=== PATIENT | female | born 1990 | race African-American/Black ===

== ENCOUNTER 2018-01-17 19:19 | Emergency (ER) | payer OTHER ==
[~2018-01-17] VITALS: Ht 162.6 cm; Wt 86.2 kg
[2018-01-17] MEDS ORDERED: IV NORMAL SALINE 1000ML BAG 1,000 ML IV ONE (20:00)
[2018-01-17 20:06] LABS: BASO # 0.1 x10^3/uL (0.0-0.2); BASO % 0 % (0-3); EOS % 0 % (0-3); HEMATOCRIT 43.4 % (36.0-47.0); HEMOGLOBIN 14.2 g/dL (12.0-15.5); LYMPH # 1.3 x10^3/uL (1.0-4.8); LYMPH % 8 % (24-48); MEAN CORPUSCULAR HEMOGLOBIN 28 pg (25-35); MEAN CORPUSCULAR HGB CONC 33 g/dL (31-37); MEAN CORPUSCULAR VOLUME 86 fL (79-100); MONO # 0.5 x10^3/uL (0.0-1.1); MONO % 3 % (0-9); NEUT # 14.3 x10^3uL (1.8-7.7); NEUT % 88 % (31-73); PLATELET COUNT 273 x10^3/uL (140-400); RED BLOOD COUNT 5.05 x10^6/uL (3.50-5.40); RED CELL DISTRIBUTION WIDTH 12.7 % (11.5-14.5); WHITE BLOOD COUNT 16.3 x10^3/uL (4.0-11.0)
[2018-01-17 20:16] LABS: CALCIUM 8.9 mg/dL (8.5-10.1); CREATININE 0.9 mg/dL (0.6-1.0); GFR 90.9; POTASSIUM 3.1 mmol/L (3.5-5.1)
[2018-01-17 20:21] LABS: % BANDS 1 % (0-9); % LYMPHS 9 % (24-48); % MONOS 2 % (0-10); % SEGS 88 % (35-66); ALBUMIN 3.9 g/dL (3.4-5.0); ALBUMIN/GLOBULIN RATIO 0.9 (1.0-1.7); MAGNESIUM 1.8 mg/dL (1.8-2.4); PLT ESTIMATE ADEQUATE (ADEQUATE); TOTAL BILIRUBIN 0.2 mg/dL (0.2-1.0); TOTAL PROTEIN 8.2 g/dL (6.4-8.2)
[2018-01-17 20:23] LABS: TOXIC GRANULATION SLIGHT
[2018-01-17 20:31] LABS: BILIRUBIN,URINE NEGATIVE (NEG); CLARITY,URINE CLEAR; COLOR,URINE YELLOW; NITRITE,URINE NEGATIVE (NEG); PH,URINE 6.5; PROTEIN,URINE >=300 mg/dL (NEG-TRACE); UROBILINOGEN,URINE 0.2 mg/dL (0.2 mg/dL)
[2018-01-17 20:35] LABS: BARBITURATES NEG (NEG); BENZODIAZEPINES NEG (NEG); CANNABINOIDS NEG (NEG); COCAINE NEG (NEG); METHADONE NEG (NEG); OPIATES NEG (NEG); PHENCYCLIDINE NEG (NEG)
[2018-01-17 20:36] LABS: AMPHETAMINE/METHAMPHETAMINE NEG (NEG)
[2018-01-17 20:37] LABS: BACTERIA,URINE FEW /HPF (0-FEW); SQUAMOUS EPITHELIAL CELL,UR FEW /LPF
--- NOTE | 2018-01-17 21:42 | PHYS DOC ---
Past Medical History Past Medical History: Seizure, Other Additional Past Medical Histor: epilepsy, murmur Past Surgical History: No Surgical History Additional Information: nonsmoker Alcohol Use: None Drug Use: None Adult General Chief Complaint Chief Complaint: SEIZURE HPI HPI Patient is a 27 year old [f__sex] who presents with [] Review of Systems Review of Systems Constitutional: Denies fever or chills [] Eyes: Denies change in visual acuity, redness, or eye pain [] HENT: Denies nasal congestion or sore throat [] Respiratory: Denies cough or shortness of breath [] Cardiovascular: No additional information not addressed in HPI [] GI: Denies abdominal pain, nausea, vomiting, bloody stools or diarrhea [] : Denies dysuria or hematuria [] Musculoskeletal: Denies back pain or joint pain [] Integument: Denies rash or skin lesions [] Neurologic: Denies headache, focal weakness or sensory changes [] Endocrine: Denies polyuria or polydipsia [] All other systems were reviewed and found to be within normal limits, except as documented in this note. Current Medications Current Medications Current Medications Medications (Trade) Dose Ordered Sig/Malcolm Start Time Stop Time Status Last Admin Dose Admin Ondansetron HCl (Zofran) 4 mg 1X ONCE 01/17/18 22:00 01/17/18 22:01 Potassium Chloride (Klor-Con) 40 meq 1X ONCE 01/17/18 21:45 01/17/18 21:46 DC Sodium Chloride 1,000 ml @ 1,000 mls/hr 1X ONCE 01/17/18 20:00 01/17/18 20:59 DC 01/17/18 20:57 1,000 MLS/HR Allergies Allergies Allergies Coded Allergies Type Severity Reaction Last Updated Verified latex Allergy Unknown 12/28/14 No Physical Exam Physical Exam Constitutional: Well developed, well nourished, no acute distress, non-toxic appearance. [] HENT: Normocephalic, atraumatic, bilateral external ears normal, oropharynx moist, no oral exudates, nose normal. [] Eyes: PERRLA, EOMI, conjunctiva normal, no discharge. [] Neck: Normal range of motion, no tenderness, supple, no stridor. [] Cardiovascular:Heart rate regular rhythm, no murmur [] Lungs & Thorax: Bilateral breath sounds clear to auscultation [] Abdomen: Bowel sounds normal, soft, no tenderness, no masses, no pulsatile masses. [] Skin: Warm, dry, no erythema, no rash. [] Back: No tenderness, no CVA tenderness. [] Extremities: No tenderness, no cyanosis, no clubbing, ROM intact, no edema. [] Neurologic: Alert and oriented X 3, normal motor function, normal sensory function, no focal deficits noted. [] Psychologic: Affect normal, judgement normal, mood normal. [] Current Patient Data Vital Signs Vital Signs Date Time Temp Pulse Resp B/P (MAP) Pulse Ox O2 Delivery O2 Flow Rate FiO2 01/17/18 20:57 70 22 98 Lab Values Laboratory Tests Test 01/17/18 19:55 01/17/18 20:15 01/17/18 21:00 White Blood Count 16.3 x10^3/uL (4.0-11.0) H Red Blood Count 5.05 x10^6/uL (3.50-5.40) Hemoglobin 14.2 g/dL (12.0-15.5) Hematocrit 43.4 % (36.0-47.0) Mean Corpuscular Volume 86 fL (79-100) Mean Corpuscular Hemoglobin 28 pg (25-35) Mean Corpuscular Hemoglobin Concent 33 g/dL (31-37) Red Cell Distribution Width 12.7 % (11.5-14.5) Platelet Count 273 x10^3/uL (140-400) Neutrophils (%) (Auto) 88 % (31-73) H Lymphocytes (%) (Auto) 8 % (24-48) L Monocytes (%) (Auto) 3 % (0-9) Eosinophils (%) (Auto) 0 % (0-3) Basophils (%) (Auto) 0 % (0-3) Neutrophils # (Auto) 14.3 x10^3uL (1.8-7.7) H Lymphocytes # (Auto) 1.3 x10^3/uL (1.0-4.8) Monocytes # (Auto) 0.5 x10^3/uL (0.0-1.1) Eosinophils # (Auto) 0.0 x10^3/uL (0.0-0.7) Basophils # (Auto) 0.1 x10^3/uL (0.0-0.2) Segmented Neutrophils % 88 % (35-66) H Band Neutrophils % 1 % (0-9) Lymphocytes % 9 % (24-48) L Monocytes % 2 % (0-10) Toxic Granulation Slight Platelet Estimate Adequate (ADEQUATE) Sodium Level 139 mmol/L (136-145) Potassium Level 3.1 mmol/L (3.5-5.1) L Chloride Level 103 mmol/L (98-107) Carbon Dioxide Level 23 mmol/L (21-32) Anion Gap 13 (6-14) Blood Urea Nitrogen 12 mg/dL (7-20) Creatinine 0.9 mg/dL (0.6-1.0) Estimated GFR (Cockcroft-Gault) 90.9 BUN/Creatinine Ratio 13 (6-20) Glucose Level 115 mg/dL (70-99) H Calcium Level 8.9 mg/dL (8.5-10.1) Magnesium Level 1.8 mg/dL (1.8-2.4) Total Bilirubin 0.2 mg/dL (0.2-1.0) Aspartate Amino Transferase (AST) 13 U/L (15-37) L Alanine Aminotransferase (ALT) 19 U/L (14-59) Alkaline Phosphatase 82 U/L (46-116) Creatine Kinase 159 U/L (26-192) Total Protein 8.2 g/dL (6.4-8.2) Albumin 3.9 g/dL (3.4-5.0) Albumin/Globulin Ratio 0.9 (1.0-1.7) L Ethyl Alcohol Level < 10 mg/dL (0-10) Urine Collection Type Unknown Urine Color Yellow Urine Clarity Clear Urine pH 6.5 Urine Specific [place] 1.025 Urine Protein >=300 mg/dL (NEG-TRACE) Urine Glucose (UA) Negative mg/dL (NEG) Urine Ketones (Stick) Negative mg/dL (NEG) Urine Blood Trace (NEG) Urine Nitrite Negative (NEG) Urine Bilirubin Negative (NEG) Urine Urobilinogen Dipstick 0.2 mg/dL (0.2 mg/dL) Urine Leukocyte Esterase Small (NEG) Urine RBC 1-2 /HPF (0-2) Urine WBC 1-4 /HPF (0-4) Urine Squamous Epithelial Cells Few /LPF Urine Bacteria Few /HPF (0-FEW) Urine Mucus Mod /LPF Urine Opiates Screen Neg (NEG) Urine Methadone Screen Neg (NEG) Urine Barbiturates Neg (NEG) Urine Phencyclidine Screen Neg (NEG) Urine Amphetamine/Methamphetamine Neg (NEG) Urine Benzodiazepines Screen Neg (NEG) Urine Cocaine Screen Neg (NEG) Urine Cannabinoids Screen Neg (NEG) Urine Ethyl Alcohol Neg (NEG) Lactic Acid Level 2.8 mmol/L (0.4-2.0) H Laboratory Tests 01/17/18 19:55 Laboratory Tests 01/17/18 19:55 EKG EKG [] Radiology/Procedures Radiology/Procedures [] Course & Med Decision Making Course & Med Decision Making Pertinent Labs and Imaging studies reviewed. (See chart for details) [] Dragon Disclaimer Dragon Disclaimer This electronic medical record was generated, in whole or in part, using a voice recognition dictation system. Departure Departure Impression: Primary Impression: Breakthrough seizure Additional Impression: Hypokalemia Disposition: 01 HOME, SELF-CARE Condition: STABLE Referrals: NO PCP (PCP) WENDY GARCIA MD Patient Instructions: Hypokalemia-Brief, Potassium Content of Foods, Seizure, Adult, [id number] Additional Instructions: Please take your seizure medication as prescribed. Please refrain from driving until you have been seizure free for 6 months or until you have been cleared by your doctor. Increase your diet to include foods that are rich in potassium Scripts Ondansetron (ZOFRAN ODT) 4 Mg Tab.rapdis 1 TAB SL Q8HRS PRN for NAUSEA, #15 TAB Prov: LAURIE RUTHERFORD DO 01/17/18 Problem Qualifiers LAURIE RUTHERFORD DO Jan 17, 2018 21:42
[2018-01-17] MEDS ORDERED: POTASSIUM CHLORIDE 20 MEQ TABLET.ER. PO ONE (21:45)
[2018-01-17] MEDS ORDERED: ONDA4TAB10 SL (21:53)
[2018-01-17] MEDS ORDERED: ONDANSETRON PF 4 MG/2 ML VIAL. IV ONE (22:00)
[2018-01-17 22:20] VITALS: BP 138/86
== END 2018-01-17 22:29 | disposition home or self-care (01) ==
LOC: ER 19:19
DX: R56.9 Unspecified convulsions (principal); E87.6 Hypokalemia; G40.909 Epilepsy, unspecified, not intractable, without status epilepticus; Z91.040 Latex allergy status
CPT/HCPCS: 36415; 80053; 80307; 81001; 82550; 83605; 83735; 85007; 85025; 87086; 96374; 99284; G0480; J2405; J7030; G0479

== ENCOUNTER → 2018-01-29 | Outpatient (CLI) | payer MEDICAID, OTHER ==
[2018-01-17 22:20] VITALS: BP 138/86
[~2018-01-29] MED LIST: ONDA4TAB10 SL
--- NOTE | 2018-01-29 12:43 | KCIC ---
EXAM: Pelvic sonogram. HISTORY: Pain. TECHNIQUE: Transabdominal sonographic imaging of the pelvis was performed. COMPARISON: None. FINDINGS: The uterus measures 12.8 x 5.4 x 5.9 cm. The endometrial stripe measures 14 mm. The ovaries are normal in size and demonstrate normal blood flow. There is no pelvic free fluid. IMPRESSION: Unremarkable pelvic sonogram. Electronically signed by: Emilie La MD (01/29/2018 12:40 PM) [place] [id number]
== END | disposition home or self-care (01) ==
LOC: KCIC US 09:40
PROVIDERS: ATTEND Family Medicine
DX: R10.2 Pelvic and perineal pain (principal); E87.6 Hypokalemia; Z91.040 Latex allergy status
CPT/HCPCS: 76856

== ENCOUNTER 2018-03-29 15:15 | Emergency (ER) | payer MEDICAID ==
[~2018-03-29] VITALS: Ht 157.5 cm; Wt 86.2 kg
[2018-03-29] MEDS ORDERED: ONDANSETRON PF 4 MG/2 ML VIAL. IV ONE (16:15)
[2018-03-29] MEDS ORDERED: DICYCLOMINE 20 MG/2 ML AMPUL. IM ONE (16:15)
[2018-03-29] MEDS ORDERED: IV NORMAL SALINE 1000ML BAG 1,000 ML IV ONE (16:15)
[2018-03-29 16:32] LABS: BASO % 0 % (0-3); EOS # 0.2 x10^3/uL (0.0-0.7); EOS % 2 % (0-3); HEMATOCRIT 39.6 % (36.0-47.0); HEMOGLOBIN 13.2 g/dL (12.0-15.5); LYMPH # 2.2 x10^3/uL (1.0-4.8); LYMPH % 23 % (24-48); MEAN CORPUSCULAR HEMOGLOBIN 28 pg (25-35); MEAN CORPUSCULAR HGB CONC 33 g/dL (31-37); MEAN CORPUSCULAR VOLUME 85 fL (79-100); MONO # 0.6 x10^3/uL (0.0-1.1); MONO % 6 % (0-9); NEUT # 6.7 x10^3uL (1.8-7.7); NEUT % 69 % (31-73); PLATELET COUNT 246 x10^3/uL (140-400); RED BLOOD COUNT 4.66 x10^6/uL (3.50-5.40); RED CELL DISTRIBUTION WIDTH 12.6 % (11.5-14.5); WHITE BLOOD COUNT 9.7 x10^3/uL (4.0-11.0)
[2018-03-29 16:43] LABS: CALCIUM 8.4 mg/dL (8.5-10.1); CREATININE 0.8 mg/dL (0.6-1.0); GFR 104.1; POTASSIUM 3.8 mmol/L (3.5-5.1)
[2018-03-29 17:00] VITALS: BP 123/63
--- NOTE | 2018-03-29 17:10 | PHYS DOC ---
Past Medical History Past Medical History: Asthma, Seizure, Other Additional Past Medical Histor: epilepsy, murmur, legally blind Past Surgical History: No Surgical History Alcohol Use: None Drug Use: None Adult General Chief Complaint Chief Complaint: NAUSEA/VOMITING/DIARRHA HPI HPI 27-year-old female presents to ER via EMS for complaints of N/V/D and abd cramping which started last night after eating [place] food. Pt reports she has vomited approx. 7 times with multiple episodes of diarrhea. She denies fever/ chills, urinary sxs, palpitations, or CP. She reports abd cramping is intermittent. She denies bloody stools. She reports today she has felt fatigued. EMS had admin'd zofran ODT which per pt had improved her nausea. Review of Systems Review of Systems Constitutional: Denies fever or chills [] Respiratory: Denies cough or shortness of breath [] Cardiovascular: No additional information not addressed in HPI [] GI: Denies bloody stools. Reports intermittent abd cramping w/nausea and multiple episodes of V/D : Denies dysuria or hematuria [] Musculoskeletal: Denies back pain or joint pain [] Integument: Denies rash, swelling or skin lesions [] Neurologic: Denies headache, focal weakness or sensory changes [] All other systems were reviewed and found to be within normal limits, except as documented in this note. Current Medications Current Medications Current Medications Medications (Trade) Dose Ordered Sig/Malcolm Start Time Stop Time Status Last Admin Dose Admin Dicyclomine HCl (Bentyl) 20 mg 1X ONCE 03/29/18 16:15 03/29/18 16:16 DC 03/29/18 16:22 20 MG Ondansetron HCl (Zofran) 4 mg 1X ONCE 03/29/18 16:15 03/29/18 16:16 DC 03/29/18 16:22 4 MG Sodium Chloride 1,000 ml @ 1,000 mls/hr 1X ONCE 03/29/18 16:15 03/29/18 17:14 DC 03/29/18 16:22 1,000 MLS/HR Allergies Allergies Allergies Coded Allergies Type Severity Reaction Last Updated Verified latex Allergy Unknown 12/28/14 No Physical Exam Physical Exam Constitutional: Well developed, well nourished, no acute distress, non-toxic appearance. [] HENT: Normocephalic, atraumatic, mucous membranes pink/moist, no oral exudates, nose normal. [] Eyes: Pupils equal, conjunctiva normal, no discharge. [] Neck: Normal range of motion, no tenderness, supple, no stridor. [] Cardiovascular:Heart rate regular rhythm, no murmur [] Lungs & Thorax: Bilateral breath sounds clear to auscultation. Resp. equal/ nonlabored Abdomen: Bowel sounds normal, soft- nondistended/no rigidity, diffuse mild tenderness across lower abd- no focal area or rebound tenderness, no masses, no pulsatile masses. [] Skin: Warm, dry, no erythema, no rash. [] Back: No tenderness, no CVA tenderness. [] Extremities: No tenderness, no cyanosis, no clubbing, ROM intact, no edema. [] Neurologic: Alert and oriented X 3, normal motor function, normal sensory function, no focal deficits noted. [] Psychologic: Affect normal, judgement normal, mood normal. [] Current Patient Data Vital Signs Vital Signs Date Time Temp Pulse Resp B/P (MAP) Pulse Ox O2 Delivery O2 Flow Rate FiO2 03/29/18 16:33 67 20 129/70 (89) 99 Room Air 03/29/18 15:15 98.3 98.3 Lab Values Laboratory Tests Test 03/29/18 15:59 03/29/18 16:20 03/29/18 16:30 Urine Collection Type Unknown Urine Color Yellow Urine Clarity Cloudy Urine pH 6.0 Urine Specific [place] 1.025 Urine Protein 100 mg/dL (NEG-TRACE) Urine Glucose (UA) Negative mg/dL (NEG) Urine Ketones (Stick) Negative mg/dL (NEG) Urine Blood Trace (NEG) Urine Nitrite Negative (NEG) Urine Bilirubin Negative (NEG) Urine Urobilinogen Dipstick 1.0 mg/dL (0.2 mg/dL) Urine Leukocyte Esterase Moderate (NEG) Urine RBC 3-5 /HPF (0-2) Urine WBC >40 /HPF (0-4) Urine Squamous Epithelial Cells Many /LPF Urine Bacteria Moderate /HPF (0-FEW) Urine Mucus Mod /LPF White Blood Count 9.7 x10^3/uL (4.0-11.0) Red Blood Count 4.66 x10^6/uL (3.50-5.40) Hemoglobin 13.2 g/dL (12.0-15.5) Hematocrit 39.6 % (36.0-47.0) Mean Corpuscular Volume 85 fL (79-100) Mean Corpuscular Hemoglobin 28 pg (25-35) Mean Corpuscular Hemoglobin Concent 33 g/dL (31-37) Red Cell Distribution Width 12.6 % (11.5-14.5) Platelet Count 246 x10^3/uL (140-400) Neutrophils (%) (Auto) 69 % (31-73) Lymphocytes (%) (Auto) 23 % (24-48) L Monocytes (%) (Auto) 6 % (0-9) Eosinophils (%) (Auto) 2 % (0-3) Basophils (%) (Auto) 0 % (0-3) Neutrophils # (Auto) 6.7 x10^3uL (1.8-7.7) Lymphocytes # (Auto) 2.2 x10^3/uL (1.0-4.8) Monocytes # (Auto) 0.6 x10^3/uL (0.0-1.1) Eosinophils # (Auto) 0.2 x10^3/uL (0.0-0.7) Basophils # (Auto) 0.0 x10^3/uL (0.0-0.2) Sodium Level 142 mmol/L (136-145) Potassium Level 3.8 mmol/L (3.5-5.1) Chloride Level 105 mmol/L (98-107) Carbon Dioxide Level 28 mmol/L (21-32) Anion Gap 9 (6-14) Blood Urea Nitrogen 11 mg/dL (7-20) Creatinine 0.8 mg/dL (0.6-1.0) Estimated GFR (Cockcroft-Gault) 104.1 Glucose Level 84 mg/dL (70-99) Calcium Level 8.4 mg/dL (8.5-10.1) L Lipase 132 U/L (73-393) Maternal Serum HCG Beta Subunit < 1 mIU/mL (0-5) Laboratory Tests 03/29/18 16:20 Laboratory Tests 03/29/18 16:20 EKG EKG [] Radiology/Procedures Radiology/Procedures [] Course & Med Decision Making Course & Med Decision Making Pertinent Labs reviewed. (See chart for details) 1728: On reevaluation following treatments patient reports she is feeling much better than at time of arrival. Patient had one episode of diarrhea at time of arrival to ER however following dose of Bentyl/Zofran she's had no more reported episodes of vomiting or diarrhea. She reports her nausea has subsided and at this time denies any abdominal cramping. Patient is nontoxic in appearance and in no visible distress at this time. Discussed plans for home discharge with improved symptoms. Test results were discussed and education provided on signs and symptoms to return to ER for. Patient to follow-up with primary care physician if symptoms persist. Will provide prescription for Zofran and Bentyl with discharge paperwork. Discharge instructions were discussed. Patient agreeable with discharge plan. Dragon Disclaimer Dragon Disclaimer This electronic medical record was generated, in whole or in part, using a voice recognition dictation system. Departure Departure Impression: Primary Impression: Nausea & vomiting Additional Impressions: Diarrhea Abdominal cramping Urinary tract infection Disposition: HOME, SELF-CARE Condition: STABLE Referrals: Criss LEBLANC MD (PCP) Patient Instructions: Abdominal Pain, Diarrhea, Nausea and Vomiting, Urinary Tract Infection Additional Instructions: If symptoms persist follow-up with primary doctor in 3-5 days for re-evaluation or sooner with any concerns. [place] diet- avoid spicy, greasy, and acidic foods. Drink plenty of water for hydration. Scripts Cephalexin (KEFLEX) 500 Mg Capsule 1 CAP PO BID, #10 CAP 0 Refills Prov: RULA MCINTYRE APRN 03/29/18 Dicyclomine Hcl (DICYCLOMINE HCL) 10 Mg Capsule 1 CAP PO PRN Q6HRS PRN for PAIN, #10 CAP 0 Refills Prov: RULA MCINTYRE APRN 03/29/18 Ondansetron (ONDANSETRON ODT) 4 Mg Tab.rapdis 0.5 TAB PO PRN Q6-8HRS PRN for NAUSEA, #8 TAB 0 Refills Prov: RULA MCINTYRE APRN 03/29/18 Problem Qualifiers RULA MCINTYRE APRN Mar 29, 2018 17:10
[2018-03-29 17:11] LABS: BILIRUBIN,URINE NEGATIVE (NEG); CLARITY,URINE CLOUDY; COLOR,URINE YELLOW; NITRITE,URINE NEGATIVE (NEG); PROTEIN,URINE 100 mg/dL (NEG-TRACE)
[2018-03-29 17:22] LABS: BACTERIA,URINE MODERATE /HPF (0-FEW); SQUAMOUS EPITHELIAL CELL,UR MANY /LPF; WBC,URINE >40 /HPF (0-4)
[2018-03-29] MEDS ORDERED: DICY10CA3 PO (17:43)
[2018-03-29] MEDS ORDERED: ONDA4TAB12 PO (17:43)
[2018-03-29] MEDS ORDERED: CEPH-264 PO (17:43)
== END 2018-03-29 17:50 | disposition home or self-care (01) ==
LOC: ER 15:15
DX: N39.0 Urinary tract infection, site not specified (principal); R11.2 Nausea with vomiting, unspecified; R19.7 Diarrhea, unspecified; J45.909 Unspecified asthma, uncomplicated; G40.909 Epilepsy, unspecified, not intractable, without status epilepticus; Z91.040 Latex allergy status
CPT/HCPCS: 36415; 80048; 81001; 83690; 84702; 85025; 87086; 96361; 96372; 96374; 99283; J0500; J2405; J7030

== ENCOUNTER → 2018-08-01 | Outpatient (CLI) | payer MEDICAID, OTHER ==
[~2018-08-01] MED LIST changes: +CEPH-264 PO; +DICY10CA3 PO; +ONDA4TAB12 PO
--- NOTE | 2018-08-01 10:00 | KCIC ---
Left breast ultrasound: Reason for examination: Left breast lump. Ultrasound examination of the left breast was performed with attention to the area of clinical concern 7:00 8:00 position and at the left axilla. No discrete cystic or solid nodules or architectural distortions are seen. No ductal dilatation is less than. No abnormal appearing lymph nodes are seen in the axilla. IMPRESSION: No focal abnormality seen in the area of clinical concern. Recommend clinical follow-up and follow-up ultrasound if change occurs. BI-RADS Category 1: Negative. "Our facility is accredited by the [employer] Mammography Program." This patient's information has been entered into a reminder system for the patient to be notified with the results of her examination and a target date for the next mammogram. Electronically signed by: Maribeth Crooks MD (08/01/2018 9:57 AM) [id number]
--- NOTE | 2018-08-01 10:36 | KCIC ---
EXAM: Pelvic sonogram. HISTORY: Dysfunctional uterine bleeding. TECHNIQUE: 01/29/2018. COMPARISON: Transabdominal and transvaginal sonographic imaging of the pelvis was performed. FINDINGS: The uterus measures 9.7 x 5.5 cm. The endometrial stripe measures 8.4 mm in thickness. The ovaries are normal in size and demonstrate normal blood flow. There are small bilateral antral follicles. There is a small amount of nonspecific pelvic free fluid. IMPRESSION: 1. Small amount of nonspecific pelvic free fluid, within physiologic limits for a premenopausal female. 2. Otherwise, unremarkable pelvic sonogram. Electronically signed by: Emilie La MD (08/01/2018 10:32 AM) [facility]
== END | disposition home or self-care (01) ==
LOC: KCIC US 08:31
PROVIDERS: ATTEND Family Medicine
DX: N93.8 Other specified abnormal uterine and vaginal bleeding (principal); N63.20 Unspecified lump in the left breast, unspecified quadrant
CPT/HCPCS: 76641; 76830; 76856

== ENCOUNTER 2018-10-31 14:29 | Emergency (ER) | payer OTHER ==
[~2018-10-31] VITALS: Ht 160 cm; Wt 94.8 kg
--- NOTE | 2018-10-31 15:05 | PHYS DOC ---
Past Medical History Past Medical History: Asthma, Seizure, Other Additional Past Medical Histor: epilepsy, murmur, legally blind, TBI Past Surgical History: No Surgical History Alcohol Use: None Drug Use: None Adult General Chief Complaint Chief Complaint: ABDOMINAL PAIN HPI HPI Patient is a 27-year-old female presents to the emergency department for evaluation via EMS. She states she was out in the park with her son today, and began feeling weak and lightheaded, and nauseated. She thought she was just dehydrated, and went to her home to try and cool off and drank some water. She states that she tried to get herself to use the restroom, became very nauseated and began experiencing stomach cramps. She states that she vomited, but was unable to have a bowel movement, despite trying. She has not had any bloody emesis, denies any bloody stools. She has not had any vaginal bleeding or disch arge. There are no alleviating, or exacerbating factors to her symptoms otherwise. Review of Systems Review of Systems Constitutional: Denies fever or chills [] Eyes: Denies change in visual acuity, redness, or eye pain [] HENT: Denies nasal congestion or sore throat [] Respiratory: Denies cough or shortness of breath [] Cardiovascular: The patient denies any shortness of breath, chest pain, palpitations, or orthopnea [] GI: No additional information not addressed in HPI [] : Denies hematuria. Reports Dysuria [] Musculoskeletal: Denies back pain or joint pain [] Integument: Denies rash or skin lesions [] Neurologic: Denies headache, focal weakness or sensory changes [] Endocrine: Denies polyuria or polydipsia [] All other systems were reviewed and found to be within normal limits, except as documented in this note. Current Medications Current Medications Current Medications Medications (Trade) Dose Ordered Sig/Malcolm Start Time Stop Time Status Last Admin Dose Admin Info (CONTRAST GIVEN -- Rx MONITORING) 1 each PRN DAILY PRN 10/31/18 17:00 11/02/18 16:59 Iohexol (Omnipaque 300 Mg/ml) 75 ml 1X ONCE 10/31/18 17:00 10/31/18 17:01 DC 10/31/18 17:05 75 ML Ondansetron HCl (Zofran) 4 mg 1X ONCE 10/31/18 15:30 10/31/18 15:31 DC 10/31/18 15:30 4 MG Sodium Chloride 1,000 ml @ 1,000 mls/hr Q1H 10/31/18 15:30 10/31/18 16:29 DC 10/31/18 16:25 1,000 MLS/HR Allergies Allergies Allergies Coded Allergies Type Severity Reaction Last Updated Verified latex Allergy Intermediate 10/31/18 No phenobarbital Allergy Intermediate 10/31/18 Yes Physical Exam Physical Exam PHYSICAL EXAM: CONSTITUTIONAL: Well developed, well nourished HEAD: normocephalic, atraumatic EENT: PERRL, EOMI. Conjunctivae normal color, sclerae non-icteric; moist mucous membranes. NECK: Supple, non-tender; no meningismus. LUNGS: Lungs CTA, breathing even and unlabored. Normal air movement. HEART: Regular rate and rhythm, no murmur CHEST: No deformity; non-tender ABDOMEN: The abdomen is soft, there is mild diffuse tenderness to palpation to the entire abdomen, without focal tenderness, rebound, guarding, normal bowel sounds are present, no masses or bruits. EXTREM: Normal ROM; no deformity, no calf tenderness. Normal pulses palpable in all extremities. There is no pedal edema. SKIN: No rash; no diaphoresis NEURO: Alert; normal speech, mildly delayed cognition; CN's grossly intact; strength grossly intact without focal deficit. BACK: No CVA TTP. Current Patient Data Vital Signs Vital Signs Date Time Temp Pulse Resp B/P (MAP) Pulse Ox O2 Delivery O2 Flow Rate FiO2 10/31/18 17:00 81 16 146/86 (106) 99 Room Air Lab Values Laboratory Tests Test 10/31/18 16:05 10/31/18 16:13 10/31/18 16:20 Urine Collection Type Unknown Urine Color Yellow Urine Clarity Clear Urine pH 6.5 Urine Specific [place] >=1.030 Urine Protein >=300 mg/dL (NEG-TRACE) Urine Glucose (UA) Negative mg/dL (NEG) Urine Ketones (Stick) Trace mg/dL (NEG) Urine Blood Trace (NEG) Urine Nitrite Negative (NEG) Urine Bilirubin Negative (NEG) Urine Urobilinogen Dipstick 0.2 mg/dL (0.2 mg/dL) Urine Leukocyte Esterase Small (NEG) Urine RBC 0 /HPF (0-2) Urine WBC 20-40 /HPF (0-4) Urine Squamous Epithelial Cells Mod /LPF Urine Bacteria Moderate /HPF (0-FEW) Urine Mucus Mod /LPF POC Urine HCG, Qualitative Hcg negative (Negative) White Blood Count 16.2 x10^3/uL (4.0-11.0) H Red Blood Count 4.65 x10^6/uL (3.50-5.40) Hemoglobin 12.8 g/dL (12.0-15.5) Hematocrit 39.2 % (36.0-47.0) Mean Corpuscular Volume 84 fL (79-100) Mean Corpuscular Hemoglobin 28 pg (25-35) Mean Corpuscular Hemoglobin Concent 33 g/dL (31-37) Red Cell Distribution Width 12.2 % (11.5-14.5) Platelet Count 238 x10^3/uL (140-400) Neutrophils (%) (Auto) 88 % (31-73) H Lymphocytes (%) (Auto) 8 % (24-48) L Monocytes (%) (Auto) 4 % (0-9) Eosinophils (%) (Auto) 0 % (0-3) Basophils (%) (Auto) 0 % (0-3) Neutrophils # (Auto) 14.2 x10^3uL (1.8-7.7) H Lymphocytes # (Auto) 1.3 x10^3/uL (1.0-4.8) Monocytes # (Auto) 0.6 x10^3/uL (0.0-1.1) Eosinophils # (Auto) 0.0 x10^3/uL (0.0-0.7) Basophils # (Auto) 0.1 x10^3/uL (0.0-0.2) Segmented Neutrophils % 72 % (35-66) H Band Neutrophils % 15 % (0-9) H Lymphocytes % 11 % (24-48) L Monocytes % 2 % (0-10) Platelet Estimate Adequate (ADEQUATE) Sodium Level 137 mmol/L (136-145) Potassium Level 4.4 mmol/L (3.5-5.1) Chloride Level 104 mmol/L (98-107) Carbon Dioxide Level 24 mmol/L (21-32) Anion Gap 9 (6-14) Blood Urea Nitrogen 17 mg/dL (7-20) Creatinine 0.6 mg/dL (0.6-1.0) Estimated GFR (Cockcroft-Gault) 145.1 BUN/Creatinine Ratio 28 (6-20) H Glucose Level 92 mg/dL (70-99) Calcium Level 8.8 mg/dL (8.5-10.1) Total Bilirubin 0.2 mg/dL (0.2-1.0) Aspartate Amino Transferase (AST) 18 U/L (15-37) Alanine Aminotransferase (ALT) 15 U/L (14-59) Alkaline Phosphatase 51 U/L (46-116) Creatine Kinase 140 U/L (26-192) Total Protein 7.5 g/dL (6.4-8.2) Albumin 3.4 g/dL (3.4-5.0) Albumin/Globulin Ratio 0.8 (1.0-1.7) L Lipase 110 U/L (73-393) Laboratory Tests 10/31/18 16:20 Laboratory Tests 10/31/18 16:20 EKG EKG [] Radiology/Procedures Radiology/Procedures [PROCEDURE: CT ABD PELV W/ IV CONTRST ONLY CT scan of the abdomen and pelvis with contrast 10/31/2018 CLINICAL HISTORY: Abdominal pain. TECHNIQUE: After the intravenous administration of 75 cc of Omnipaque 300, contiguous, 5 mm axial sections were obtained through the abdomen and pelvis. One or more of the following individualized dose reduction techniques were utilized for this study: 1. Automated exposure control. 2. Adjustment of the mA and/or kV according to patient size. 3. Use of iterative reconstruction technique. FINDINGS: Images through the lung bases demonstrate minimal dependent subsegmental atelectasis bilaterally. The liver, spleen, pancreas, adrenal glands and kidneys are within normal limits. The abdominal aorta tapers normally. The gallbladder is slightly contracted. A small amount of free fluid is seen surrounding the spleen and within the lower abdomen. The appendix is well-visualized and is within normal limits. No free air is noted. There is no evidence of bowel obstruction. Images through pelvis demonstrate the urinary bladder with urine. An oval-shaped low-attenuation mass is seen within the right adnexa which measures 4.2 cm in greatest diameter. It likely represents a right ovarian cyst. A small amount of free fluid is seen within the pelvis. Minimal S-shaped curvature of the thoracolumbar spine is seen. IMPRESSION: 1. 4.2 cm probable right ovarian cyst. 2. Small amount of free fluid is seen within abdomen and pelvis.] Course & Med Decision Making Course & Med Decision Making Pertinent Labs and Imaging studies reviewed. (See chart for details) [] 5:50 PM: The patient's condition remains stable. I'm uncertain of the etiology of the fluid in her abdomen and this will require further follow-up. Discussed test results including the CT report with the patient, the need for close follow-up, medications for symptom management, and return precautions. Does report dysuria, Will Rx Atbx. Dragon Disclaimer Dragon Disclaimer This electronic medical record was generated, in whole or in part, using a voice recognition dictation system. Departure Departure Impression: Primary Impression: Nausea & vomiting Additional Impressions: Abdominal pain UTI (urinary tract infection) Disposition: 01 HOME, SELF-CARE Condition: STABLE Referrals: Criss LEBLANC MD (PCP) Patient Instructions: Abdominal Pain, Nausea and Vomiting Additional Instructions: CT scan today did show some free fluid in your abdomen and this will require further follow-up by your primary care provider. Please call your primary care provider to arrange further outpatient follow-up. Scripts Sulfamethoxazole/Trimethoprim (BACTRIM DS TABLET) 1 Each Tablet 1 TAB PO BID, #14 TAB Prov: AMIRA GARCIA MD 10/31/18 Ondansetron Hcl (ZOFRAN) 4 Mg Tablet 1 TAB PO Q6HRS PRN for NAUSEA/VOMITING, #10 TAB Prov: AMIRA GARCIA MD 10/31/18 Dicyclomine Hcl (DICYCLOMINE HCL) 20 Mg Tablet 1 TAB PO QID, #20 TAB Prov: AMIRA GARCIA MD 10/31/18 Problem Qualifiers AMIRA GARCIA MD Oct 31, 2018 15:05
[2018-10-31] MEDS ORDERED: ONDANSETRON PF 4 MG/2 ML VIAL. IV ONE (15:30)
[2018-10-31] MEDS ORDERED: IV NORMAL SALINE 1000ML BAG 1,000 ML IV SCH (15:30)
[2018-10-31 16:22] LABS: BILIRUBIN,URINE NEGATIVE (NEG); CLARITY,URINE CLEAR; COLOR,URINE YELLOW; NITRITE,URINE NEGATIVE (NEG); PH,URINE 6.5; PROTEIN,URINE >=300 mg/dL (NEG-TRACE); UROBILINOGEN,URINE 0.2 mg/dL (0.2 mg/dL)
[2018-10-31 16:27] LABS: BACTERIA,URINE MODERATE /HPF (0-FEW); RBC,URINE 0 /HPF (0-2); SQUAMOUS EPITHELIAL CELL,UR MOD /LPF; WBC,URINE 20-40 /HPF (0-4)
[2018-10-31 16:31] LABS: BASO # 0.1 x10^3/uL (0.0-0.2); BASO % 0 % (0-3); EOS % 0 % (0-3); HEMATOCRIT 39.2 % (36.0-47.0); HEMOGLOBIN 12.8 g/dL (12.0-15.5); LYMPH # 1.3 x10^3/uL (1.0-4.8); LYMPH % 8 % (24-48); MEAN CORPUSCULAR HEMOGLOBIN 28 pg (25-35); MEAN CORPUSCULAR HGB CONC 33 g/dL (31-37); MEAN CORPUSCULAR VOLUME 84 fL (79-100); MONO # 0.6 x10^3/uL (0.0-1.1); MONO % 4 % (0-9); NEUT # 14.2 x10^3uL (1.8-7.7); NEUT % 88 % (31-73); PLATELET COUNT 238 x10^3/uL (140-400); RED BLOOD COUNT 4.65 x10^6/uL (3.50-5.40); RED CELL DISTRIBUTION WIDTH 12.2 % (11.5-14.5); WHITE BLOOD COUNT 16.2 x10^3/uL (4.0-11.0)
[2018-10-31 16:43] LABS: CALCIUM 8.8 mg/dL (8.5-10.1); CREATININE 0.6 mg/dL (0.6-1.0); GFR 145.1; POTASSIUM 4.4 mmol/L (3.5-5.1)
[2018-10-31 16:49] LABS: ALBUMIN 3.4 g/dL (3.4-5.0); ALBUMIN/GLOBULIN RATIO 0.8 (1.0-1.7); TOTAL BILIRUBIN 0.2 mg/dL (0.2-1.0); TOTAL PROTEIN 7.5 g/dL (6.4-8.2)
[2018-10-31] MEDS ORDERED: IOHEXOL 300 MG/ML 100ML VIAL. IV ONE (17:00)
[2018-10-31] MEDS ORDERED: CONTRAST GIVEN. MC PRN (17:00)
[2018-10-31 17:03] LABS: % BANDS 15 % (0-9); % LYMPHS 11 % (24-48); % MONOS 2 % (0-10); % SEGS 72 % (35-66); PLT ESTIMATE ADEQUATE (ADEQUATE)
--- NOTE | 2018-10-31 17:26 | RAD ---
CT scan of the abdomen and pelvis with contrast 10/31/2018 CLINICAL HISTORY: Abdominal pain. TECHNIQUE: After the intravenous administration of 75 cc of Omnipaque 300, contiguous, 5 mm axial sections were obtained through the abdomen and pelvis. One or more of the following individualized dose reduction techniques were utilized for this study: 1. Automated exposure control. 2. Adjustment of the mA and/or kV according to patient size. 3. Use of iterative reconstruction technique. FINDINGS: Images through the lung bases demonstrate minimal dependent subsegmental atelectasis bilaterally. The liver, spleen, pancreas, adrenal glands and kidneys are within normal limits. The abdominal aorta tapers normally. The gallbladder is slightly contracted. A small amount of free fluid is seen surrounding the spleen and within the lower abdomen. The appendix is well-visualized and is within normal limits. No free air is noted. There is no evidence of bowel obstruction. Images through pelvis demonstrate the urinary bladder with urine. An oval-shaped low-attenuation mass is seen within the right adnexa which measures 4.2 cm in greatest diameter. It likely represents a right ovarian cyst. A small amount of free fluid is seen within the pelvis. Minimal S-shaped curvature of the thoracolumbar spine is seen. IMPRESSION: 1. 4.2 cm probable right ovarian cyst. 2. Small amount of free fluid is seen within abdomen and pelvis. Electronically signed by: Kayden Jones MD (10/31/2018 5:23 PM) [facility]
[2018-10-31] MEDS ORDERED: DICY20TA3 PO (17:56)
[2018-10-31] MEDS ORDERED: ONDA4TAB7 PO (17:56)
[2018-10-31] MEDS ORDERED: SULF1TAB24 PO (18:15)
[2018-10-31 18:30] VITALS: BP 137/76
== END 2018-10-31 18:35 | disposition home or self-care (01) ==
LOC: ER 14:29
DX: N39.0 Urinary tract infection, site not specified (principal); R11.2 Nausea with vomiting, unspecified; J45.909 Unspecified asthma, uncomplicated; G40.909 Epilepsy, unspecified, not intractable, without status epilepticus; Z91.040 Latex allergy status; Z88.8 Allergy status to other drugs, medicaments and biological substances
CPT/HCPCS: 36415; 74177; 80053; 81001; 81025; 82550; 83690; 85007; 85025; 87086; 96361; 96374; 99285; J2405; J7030; Q9967

== ENCOUNTER 2020-04-06 14:37 | Emergency (ER) | payer OTHER ==
[~2020-04-06] VITALS: Ht 165.1 cm; Wt 97.7 kg
[~2020-04-06 14:37] MED LIST changes: +DICY20TA3 PO; +ONDA4TAB7 PO; +SULF1TAB24 PO
[2020-04-06] MEDS ORDERED: 0.9 % SODIUM CHLORIDE 10 ML DISP.SYRIN. IV PRN (15:00)
[2020-04-06] MEDS ORDERED: IV NORMAL SALINE 1000ML BAG 1,000 ML IV ONE (15:00)
--- NOTE | 2020-04-06 15:06 | PHYS DOC ---
Past Medical History Past Medical History: Asthma, Seizure, Stroke, Other Additional Past Medical Histor: epilepsy, murmur, legally blind, TBI Past Surgical History: No Surgical History Smoking Status: Never Smoker Alcohol Use: None Drug Use: None General Adult EDM: Chief Complaint: MULTIPLE COMPLAINTS HPI: HPI: Patient is a 29 year old female presents to the emergency room stating she feels terrible and feels like she is going to have a seizure. She takes Keppra for seizures and states has not missed any doses. Last breakthrough seizure was earlier this summer. She states feels dizzy. She denies any chest pain, fevers or shortness of air. No recent illness. Review of Systems: Review of Systems: Constitutional: Denies fever or chills. [] Eyes: Denies change in visual acuity. [] HENT: Denies nasal congestion or sore throat. [] Respiratory: Denies cough or shortness of breath. [] Cardiovascular: Denies chest pain or edema. [] GI: Denies abdominal pain, nausea, vomiting, bloody stools or diarrhea. [] : Denies dysuria. [] Musculoskeletal: Denies back pain or joint pain. [] Integument: Denies rash. [] Neurologic: Denies headache, focal weakness or sensory changes. REPORT DIZZINESS[] Endocrine: Denies polyuria or polydipsia. [] Lymphatic: Denies swollen glands. [] Psychiatric: Denies depression or anxiety. [] Heart Score: Risk Factors: Risk Factors: DM, Current or recent (<one month) smoker, HTN, HLP, family history of CAD, obesity. Risk Scores: Score 0 - 3: 2.5% MACE over next 6 weeks - Discharge Home Score 4 - 6: 20.3% MACE over next 6 weeks - Admit for Clinical Observation Score 7 - 10: 72.7% MACE over next 6 weeks - Early Invasive Strategies Allergies: Allergies: Allergies Coded Allergies Type Severity Reaction Last Updated Verified latex Allergy Intermediate 10/31/18 No phenobarbital Allergy Intermediate 10/31/18 Yes Physical Exam: PE: Constitutional: Well developed, well nourished, no acute distress, non-toxic appearance.[] HENT: Normocephalic, atraumatic, bilateral external ears normal, [] Eyes: PERRLA, EOMI, conjunctiva normal, no discharge. [] Neck: Normal range of motion, no tenderness, supple, no stridor. [] Cardiovascular:Heart rate regular rhythm, no murmur [] Lungs & Thorax: Bilateral breath sounds clear to auscultation [] Abdomen: Bowel sounds normal, soft, no tenderness, no masses, no pulsatile masses. [] Skin: Warm, dry, no erythema, no rash. [] Back: No tenderness, no CVA tenderness. [] Extremities: No tenderness, no cyanosis, no clubbing, ROM intact, no edema. [] Neurologic: Alert and oriented X 3, normal motor function, normal sensory function, no focal deficits noted. [] Psychologic: Affect normal, judgement normal, mood normal. [] Current Patient Data: Labs: Laboratory Tests Test 04/06/20 15:15 04/06/20 16:40 White Blood Count 7.4 x10^3/uL Red Blood Count 4.73 x10^6/uL Hemoglobin 13.1 g/dL Hematocrit 39.0 % Mean Corpuscular Volume 82 fL Mean Corpuscular Hemoglobin 28 pg Mean Corpuscular Hemoglobin Concent 34 g/dL Red Cell Distribution Width 12.6 % Platelet Count 275 x10^3/uL Neutrophils (%) (Auto) 69 % Lymphocytes (%) (Auto) 23 % Monocytes (%) (Auto) 7 % Eosinophils (%) (Auto) 1 % Basophils (%) (Auto) 1 % Neutrophils # (Auto) 5.1 x10^3/uL Lymphocytes # (Auto) 1.7 x10^3/uL Monocytes # (Auto) 0.5 x10^3/uL Eosinophils # (Auto) 0.1 x10^3/uL Basophils # (Auto) 0.1 x10^3/uL Sodium Level 140 mmol/L Potassium Level 3.7 mmol/L Chloride Level 104 mmol/L Carbon Dioxide Level 30 mmol/L Anion Gap 6 Blood Urea Nitrogen 12 mg/dL Creatinine 1.0 mg/dL Estimated GFR (Cockcroft-Gault) 79.3 BUN/Creatinine Ratio 12 Glucose Level 99 mg/dL Calcium Level 9.3 mg/dL Total Bilirubin 0.1 mg/dL Aspartate Amino Transf (AST/SGOT) 17 U/L Alanine Aminotransferase (ALT/SGPT) 24 U/L Alkaline Phosphatase 75 U/L Total Protein 7.4 g/dL Albumin 3.7 g/dL Albumin/Globulin Ratio 1.0 Urine Collection Type Unknown Urine Color Yellow Urine Clarity Turbid Urine pH 7.5 Urine Specific [place] 1.025 Urine Protein 100 mg/dL Urine Glucose (UA) Negative mg/dL Urine Ketones (Stick) Negative mg/dL Urine Blood Negative Urine Nitrite Negative Urine Bilirubin Negative Urine Urobilinogen Dipstick 1.0 mg/dL Urine Leukocyte Esterase Negative Urine RBC 0 /HPF Urine WBC 0 /HPF Urine Squamous Epithelial Cells Many /LPF Urine Amorphous Sediment Present /HPF Urine Bacteria Few /HPF Current Medications Medications (Trade) Dose Ordered Sig/Malcolm Route PRN Reason Start Time Stop Time Status Last Admin Dose Admin Sodium Chloride (Normal Saline Flush) 10 ml QSHIFT PRN IV AFTER MEDS AND BLOOD DRAWS 04/06/20 15:00 Sodium Chloride 1,000 ml @ 1,000 mls/hr 1X ONCE IV 04/06/20 15:00 04/06/20 15:59 DC 04/06/20 15:30 Vital Signs: Vital Signs Date Time Temp Pulse Resp B/P (MAP) Pulse Ox O2 Delivery O2 Flow Rate FiO2 04/06/20 14:48 98.2 76 18 152/78 (102) 99 98.2 EKG: EKG: [] Radiology/Procedures: Radiology/Procedures: [] Course & Med Decision Making: Course & Med Decision Making Pertinent Labs and Imaging studies reviewed. (See chart for details) [1715 on reevaluation, patient states she is feeling much better, states she is ready for discharge home. She has not had any seizures while in emergency room, vital signs stable, no evidence of infection, labs within normal limits. She will follow-up with her primary care provider in the next 2 to 3 days, return to ER for new or worsening symptoms. States she is no longer dizzy, is ready to call family to come pick her up.] Dragon Disclaimer: Dragon Disclaimer: This electronic medical record was generated, in whole or in part, using a voice recognition dictation system. Departure Departure Impression: Primary Impression: Dizziness, nonspecific Disposition: 01 DC HOME SELF CARE/HOMELESS Referrals: DEE BERNARDO MD (PCP) Patient Instructions: Dizziness, [place] ANDREA HOPSON ENG[employer] Apr 06, 2020 15:06
[2020-04-06 15:27] LABS: BASO # 0.1 x10^3/uL (0.0-0.2); BASO % 1 % (0-3); EOS # 0.1 x10^3/uL (0.0-0.7); EOS % 1 % (0-3); HEMOGLOBIN 13.1 g/dL (12.0-15.5); LYMPH # 1.7 x10^3/uL (1.0-4.8); LYMPH % 23 % (24-48); MEAN CORPUSCULAR HEMOGLOBIN 28 pg (25-35); MEAN CORPUSCULAR HGB CONC 34 g/dL (31-37); MEAN CORPUSCULAR VOLUME 82 fL (79-100); MONO # 0.5 x10^3/uL (0.0-1.1); MONO % 7 % (0-9); NEUT # 5.1 x10^3/uL (1.8-7.7); NEUT % 69 % (31-73); PLATELET COUNT 275 x10^3/uL (140-400); RED BLOOD COUNT 4.73 x10^6/uL (3.50-5.40); RED CELL DISTRIBUTION WIDTH 12.6 % (11.5-14.5); WHITE BLOOD COUNT 7.4 x10^3/uL (4.0-11.0)
[2020-04-06 15:35] LABS: CALCIUM 9.3 mg/dL (8.5-10.1); GFR 79.3; POTASSIUM 3.7 mmol/L (3.5-5.1)
[2020-04-06 15:40] LABS: ALBUMIN 3.7 g/dL (3.4-5.0); TOTAL BILIRUBIN 0.1 mg/dL (0.2-1.0); TOTAL PROTEIN 7.4 g/dL (6.4-8.2)
[2020-04-06 16:56] LABS: BILIRUBIN,URINE NEGATIVE (NEG); CLARITY,URINE TURBID; COLOR,URINE YELLOW; NITRITE,URINE NEGATIVE (NEG); PH,URINE 7.5 (<5.0-8.0); PROTEIN,URINE 100 mg/dL (NEG-TRACE)
[2020-04-06 17:15] LABS: AMORPHOUS SEDIMENT,UR PRESENT /HPF; BACTERIA,URINE FEW /HPF (0-FEW); RBC,URINE 0 /HPF (0-2); WBC,URINE 0 /HPF (0-4)
[2020-04-06 18:10] VITALS: BP 156/74
== END 2020-04-06 18:10 | disposition home or self-care (01) ==
LOC: ER 14:37
DX: R42 Dizziness and giddiness (principal); G40.909 Epilepsy, unspecified, not intractable, without status epilepticus; J45.909 Unspecified asthma, uncomplicated; Z86.73 Personal history of transient ischemic attack (TIA), and cerebral infarction without residual deficits; Z88.8 Allergy status to other drugs, medicaments and biological substances; Z91.040 Latex allergy status
CPT/HCPCS: 36415; 80053; 81001; 85025; 96360; 99285; J7030